=== PATIENT | female | born 1980 | race Caucasian/White ===

== ENCOUNTER 2018-01-04 17:47 | Emergency (ER) | payer OTHER ==
[2018-01-04] MEDS ORDERED: SODIUM CHLORIDE 0.9% 1,000 ML IV ONE (19:17)
--- NOTE | 2018-01-04 19:31 | ED ---
General Adult HPI - General Source: patient Mode of arrival: ambulatory Limitations: no limitations <Bernice Walton - Last Filed: 01/05/18 05:39> <Jose Carlos Beatty - Last Filed: 01/05/18 10:45> - General Chief complaint: Vaginal Bleeding Stated complaint: poss miscarrage Time Seen by Provider: 01/04/18 18:18 - History of Present Illness Initial comments: 37-year-old female patient presents to the emergency department today for complaints of vaginal bleeding. Patient states she has had 4 positive test at home. Last period was on 11/23/2017. 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 Patient states she has had that vaginal bleeding for the last 9 days, states this started as spotting and has become heavier. States that she now has to wear a pad. States that she has had some small clots but no passage of tissue that she has noticed. States she is not having any pain with this. Patient states her blood type is B- and she has had to get Rhogam for the past. She denies any hematuria, dysuria, urinary frequency, urinary urgency. States she is having normal bowel movements. Patient denies any recent rash, fever, chills, shortness breath, chest pain, nausea, vomiting, diarrhea, constipation, back pain, numbness, tingling, dizziness, weakness, headache, visual changes, or any other complaints. (Bernice Walton) - Related Data Allergies Allergy/AdvReac Type Severity Reaction Status Date / Time No Known Allergies Allergy Verified 01/04/18 18:02 Review of Systems ROS Other: All systems not noted in ROS Statement are negative. <Bernice Walton - Last Filed: 01/05/18 05:39> ROS Other: All systems not noted in ROS Statement are negative. <Jose Carlos Beatty - Last Filed: 01/05/18 10:45> ROS Statement: Those systems with pertinent positive or pertinent negative responses have been documented in the HPI. Past Medical History Past Medical History: No Reported History History of Any Multi-Drug Resistant Organisms: None Reported Past Surgical History: Section Past Psychological History: Anxiety, Depression Smoking Status: Current every day smoker Past Alcohol Use History: Occasional Past Drug Use History: None Reported <Bernice Walton - Last Filed: 01/05/18 05:39> General Exam Limitations: no limitations General appearance: alert, in no apparent distress, other (This is a well- developed, well-nourished adult female patient in no acute distress. Vital signs upon presentation are temperature 98.3F, pulse 114, respirations 20, blood pressure 156/86, pulse ox 98% on room air.) Eye exam: Present: normal appearance, PERRL, EOMI. Absent: scleral icterus, conjunctival injection, periorbital swelling ENT exam: Present: normal exam, normal oropharynx, mucous membranes moist Respiratory exam: Present: normal lung sounds bilaterally. Absent: respiratory distress, wheezes, rales, rhonchi, stridor Cardiovascular Exam: Present: regular rate, normal rhythm, normal heart sounds. Absent: systolic murmur, diastolic murmur, rubs, gallop, clicks GI/Abdominal exam: Present: soft, normal bowel sounds. Absent: distended, tenderness, guarding, rebound, rigid Back exam: Present: normal inspection. Absent: CVA tenderness (R), CVA tenderness (L) Neurological exam: Present: alert, oriented X3, CN II-XII intact Psychiatric exam: Present: normal affect, normal mood Skin exam: Present: warm, dry, intact, normal color. Absent: rash <Bernice Walton - Last Filed: 01/05/18 05:39> Vital Signs 01/04/18 01/04/18 01/04/18 17:59 20:35 22:40 Temperature 98.3 F 97.9 F Pulse Rate 114 H 79 64 Respiratory 20 16 17 Rate Blood Pressure 156/86 146/83 136/92 O2 Sat by Pulse 98 99 99 Oximetry Medical Decision Making - Lab Data Result diagrams: 01/04/18 19:30 01/04/18 19:30 - Radiology Data Radiology results: report reviewed, image reviewed <Bernice Walton - Last Filed: 01/05/18 05:39> - Lab Data Result diagrams: 01/04/18 19:30 01/04/18 19:30 <Jose Carlos Beatty - Last Filed: 01/05/18 10:45> - Medical Decision Making 37-year-old female patient presents to emergency department today for evaluation of vaginal bleeding for the last 7 days. Patient is . Ultrasound did show possible gestational sac but also dilation of the left fallopian tube. Labs reviewed and showed elevated hCG at 370. Patient does have a B- blood type so we did administer RhoGAM. My attending Dr. Beatty did speak to Dr. Goode the ARMORED VEHICLE OFFICER on-call, states she will see the patient and next couple days for follow-up ultrasound and serial hCG. Did discuss findings and results with the patient. Did discuss signs and symptoms of ectopic . She is instructed to return here immediately for any new, worsening , or concerning symptoms. She verbalizes understanding and agrees with this plan. (Bernice Walton) I saw this patient in conjunction with the physician insurance account assistant. I performed independent history and physical exam. Agree with case management. I also discussed case management with Dr. Goode who will see the patient in follow-up for serial hCG and ultrasound. Discussed return parameters and appropriate follow-up. (Jose Carlos Beatty) - Lab Data Lab Results 01/04/18 01/04/18 01/04/18 Range/Units 17:50 19:30 19:30 WBC 8.2 (3.8-10.6) k/uL RBC 4.62 (3.80-5.40) m/uL Hgb 15.1 (11.4-16.0) gm/dL Hct 46.5 H (34.0-46.0) % MCV 100.7 H (80.0-100.0) fL MCH 32.7 (25.0-35.0) pg MCHC 32.5 (31.0-37.0) g/dL RDW 12.6 (11.5-15.5) % Plt Count 296 (150-450) k/uL Neutrophils % 81 % Lymphocytes % 11 % Monocytes % 5 % Eosinophils % 1 % Basophils % 0 % Neutrophils # 6.7 (1.3-7.7) k/uL Lymphocytes # 0.9 L (1.0-4.8) k/uL Monocytes # 0.4 (0-1.0) k/uL Eosinophils # 0.1 (0-0.7) k/uL Basophils # 0.0 (0-0.2) k/uL Sodium 137 (137-145) mmol/L Potassium 4.1 (3.5-5.1) mmol/L Chloride 104 (98-107) mmol/L Carbon Dioxide 24 (22-30) mmol/L Anion Gap 9 mmol/L BUN 9 (7-17) mg/dL Creatinine 0.60 (0.52-1.04) mg/dL Est GFR (CKD-EPI)AfAm >90 (>60 ml/min/1.73 sqM) Est GFR (CKD-EPI)NonAf >90 (>60 ml/min/1.73 sqM) Glucose 206 H (74-99) mg/dL Calcium 9.5 (8.4-10.2) mg/dL Total Bilirubin 0.4 (0.2-1.3) mg/dL AST 24 (14-36) U/L ALT 35 (9-52) U/L Alkaline Phosphatase 58 (38-126) U/L Total Protein 7.0 (6.3-8.2) g/dL Albumin 3.9 (3.5-5.0) g/dL HCG, Quant 370.0 mIU/mL Urine Color Urine Appearance (Clear) Urine pH (5.0-8.0) Ur Specific [place] (1.001-1.035) Urine Protein (Negative) Urine Glucose (UA) (Negative) Urine Ketones (Negative) Urine Blood (Negative) Urine Nitrite (Negative) Urine Bilirubin (Negative) Urine Urobilinogen (<2.0) mg/dL Ur Leukocyte Esterase (Negative) Urine RBC (0-5) /hpf Ur Squamous Epith Cells (0-4) /hpf Urine Mucus (None) /hpf Blood Type B Negative Blood Type Confirm Blood Type Recheck CABO Indicated Antibody Screen NEGATIVE 01/04/18 01/04/18 Range/Units 19:30 21:01 WBC (3.8-10.6) k/uL RBC (3.80-5.40) m/uL Hgb (11.4-16.0) gm/dL Hct (34.0-46.0) % MCV (80.0-100.0) fL MCH (25.0-35.0) pg MCHC (31.0-37.0) g/dL RDW (11.5-15.5) % Plt Count (150-450) k/uL Neutrophils % % Lymphocytes % % Monocytes % % Eosinophils % % Basophils % % Neutrophils # (1.3-7.7) k/uL Lymphocytes # (1.0-4.8) k/uL Monocytes # (0-1.0) k/uL Eosinophils # (0-0.7) k/uL Basophils # (0-0.2) k/uL Sodium (137-145) mmol/L Potassium (3.5-5.1) mmol/L Chloride (98-107) mmol/L Carbon Dioxide (22-30) mmol/L Anion Gap mmol/L BUN (7-17) mg/dL Creatinine (0.52-1.04) mg/dL Est GFR (CKD-EPI)AfAm (>60 ml/min/1.73 sqM) Est GFR (CKD-EPI)NonAf (>60 ml/min/1.73 sqM) Glucose (74-99) mg/dL Calcium (8.4-10.2) mg/dL Total Bilirubin (0.2-1.3) mg/dL AST (14-36) U/L ALT (9-52) U/L Alkaline Phosphatase (38-126) U/L Total Protein (6.3-8.2) g/dL Albumin (3.5-5.0) g/dL HCG, Quant mIU/mL Urine Color Red Urine Appearance Cloudy H (Clear) Urine pH 5.5 (5.0-8.0) Ur Specific [place] 1.019 (1.001-1.035) Urine Protein 1+ H (Negative) Urine Glucose (UA) Negative (Negative) Urine Ketones Negative (Negative) Urine Blood Large H (Negative) Urine Nitrite Negative (Negative) Urine Bilirubin Negative (Negative) Urine Urobilinogen <2.0 (<2.0) mg/dL Ur Leukocyte Esterase Small H (Negative) Urine RBC >182 H (0-5) /hpf Ur Squamous Epith Cells 2 (0-4) /hpf Urine Mucus Rare H (None) /hpf Blood Type Blood Type Confirm B Negative Blood Type Recheck Antibody Screen - Radiology Data Transvaginal and transabdominal ultrasound was obtained. Report was reviewed in its entirety. Impression by Dr. Lei shows possible intrauterine 4 mm gestational sac. 2 cm urine fibroid. Right ovarian cyst. Also noted is a anechoic tubular structure seen left adnexa, question possible dilated tube. ( Bernice Walton) Disposition Is patient prescribed a controlled substance at d/c from ED?: No Time of Disposition: 22:08 <Bernice Walton - Last Filed: 01/05/18 05:39> <Jose Carlos Beatty - Last Filed: 01/05/18 10:45> Clinical Impression: Threatened , Vaginal bleeding during Disposition: HOME SELF-CARE Condition: Good Instructions: Rh (By injection), Threatened Miscarriage (ED) Additional Instructions: Follow up with OBGYN in 2 days for a recheck, call office tomorrow for appointment. Return immediately for increased pain, worsening bleeding, or any other concerning symptom. Referrals: Dori Goode DO [Doctor of Osteopathic Medicine] - 1-2 days
[2018-01-04 19:57] LABS: Basophils % (A) 0 %; Eosinophils # (A) 0.1 k/uL (0-0.7); Eosinophils % (A) 1 %; HCT 46.5 % (34.0-46.0); HGB 15.1 gm/dL (11.4-16.0); Lymphocytes # (A) 0.9 k/uL (1.0-4.8); Lymphocytes % (A) 11 %; MCH 32.7 pg (25.0-35.0); MCHC 32.5 g/dL (31.0-37.0); MCV 100.7 fL (80.0-100.0); Mean Platelet Volume 7.1; Monocytes # (A) 0.4 k/uL (0-1.0); Monocytes % (A) 5 %; Neutrophils # (A) 6.7 k/uL (1.3-7.7); Neutrophils % (A) 81 %; Platelet Count 296 k/uL (150-450); RBC 4.62 m/uL (3.80-5.40); RDW 12.6 % (11.5-15.5); WBC 8.2 k/uL (3.8-10.6)
[2018-01-04 19:59] LABS: ALT 35 U/L (9-52); AST 24 U/L (14-36); Albumin 3.9 g/dL (3.5-5.0); Alkaline Phosphatase 58 U/L (38-126); Anion Gap 9 mmol/L; Blood Urea Nitrogen 9 mg/dL (7-17); Calcium 9.5 mg/dL (8.4-10.2); Carbon Dioxide 24 mmol/L (22-30); Chloride 104 mmol/L (98-107); Glucose 206 mg/dL (74-99); Potassium 4.1 mmol/L (3.5-5.1); Sodium 137 mmol/L (137-145); Total Bilirubin 0.4 mg/dL (0.2-1.3)
[2018-01-04 20:02] LABS: Appearance,Urine Cloudy (Clear); Bilirubin,Urine Negative (Negative); Blood,Urine Large (Negative); Color,Urine Red; Glucose,Urine (UA) Negative (Negative); Ketones,Urine Negative (Negative); Leukocyte Esterase,Urine Small (Negative); Mucus,Urine Rare /hpf; Nitrite,Urine Negative (Negative); PH, Urine 5.5 (5.0-8.0); Protein,Urine 1+ (Negative); RBC,Urine >182 /hpf (0-5); Specific Gravity,Urine 1.019 (1.001-1.035); Squamous Epithelial Cell,Urine 2 /hpf (0-4); Urobilinogen,Urine <2.0 mg/dL (<2.0)
--- NOTE | 2018-01-04 21:11 | US ---
EXAMINATION TYPE: Transabdominal DATE OF EXAM: 08/09/17 COMPARISON: NONE CLINICAL HISTORY: Pain. Spotting EXAM PERFORMED: Transvaginal (TV) and Transabdominal (TA) EXAM MEASUREMENTS: GESTATIONAL AGE / DATING Physician Established: Not yet established Dates by LMP: ( 6 weeks/0 days) EDC: 08/30/2018 Dates by First Scan: No previous this is first scan Dates by Current Scan for: No IUP seen at this time MATERNAL ANATOMY Uterus: 8.3 x 4.2 x 4.9 cm Hypoechoic area seen inferior measuring 1.8 x 1.7 x 1.8 cm. Right Ovary: 3.3 x 2.2 x 2.7 cm Cystic area seen measuring 2.9 x 2.1 x 2.0 cm. Post CDS / Adnexa: Anechoic tubular structure seen left adnexa question possible dilated tube. Presence of free fluid: no Presence of corpus luteal cyst: possible right ovary Presence of subchorionic bleed: no GESTATION / SURVEY MSD: Question possible sac seen 0.35cm. IUP: No IUP seen at this time Beta HcG (if available): 370.0 No IUP seen at this time. IMPRESSION: Possible intrauterine 4 mm gestational sac. 2 cm uterine fibroid. Right ovarian cyst. Follow-up exam is recommended in 10-14 days to confirm a living fetus if clinically indicated.
[2018-01-04] MEDS ORDERED: Rhogam IMMUNE GLOBULIN 1,500 UNIT/1 ML IM ONE (22:03)
[2018-01-04 22:45] VITALS: BP 136/92; PULSE 64; RESP 17; TEMP 97.9
== END 2018-01-04 22:45 | disposition home or self-care (01) ==
LOC: EC 17:47
DX: O20.0 Threatened abortion (principal); O99.331 Smoking (tobacco) complicating pregnancy, first trimester; F17.200 Nicotine dependence, unspecified, uncomplicated; Z3A.01 Less than 8 weeks gestation of pregnancy
CPT/HCPCS: 36415; 86900; 86901; 80053; 85025; 86850; 81001; 84702; 76801; 76817; 99284; 96372; J2791

== ENCOUNTER → 2018-01-06 | Outpatient (CLI) | payer OTHER | END | disposition home or self-care (01) | LOC: LABWHC1 14:09 | PROVIDERS: ATTEND Obstetrics & Gynecology | DX: O20.0 Threatened abortion (principal); Z3A.00 Weeks of gestation of pregnancy not specified | CPT/HCPCS: 36415; 84702 ==

== ENCOUNTER → 2018-01-13 | Outpatient (CLI) | payer OTHER | END | disposition home or self-care (01) | LOC: LABWHC1 14:55 | PROVIDERS: ATTEND Obstetrics & Gynecology | DX: O02.1 Missed abortion (principal) | CPT/HCPCS: 36415; 84702 ==

== ENCOUNTER 2021-05-28 11:00 | Emergency (ER) | payer OTHER ==
[2021-05-28 11:09] VITALS: RESP 18; TEMP 98.7
[2021-05-28] MEDS ORDERED: guaiFENesin-Coden 100-10MG/5ML 10 ML CUP PO STA (11:37)
--- NOTE | 2021-05-28 12:02 | XR ---
EXAMINATION TYPE: XR chest 2V DATE OF EXAM: 05/28/2021 COMPARISON: NONE HISTORY: Cough and fever. COVID. TECHNIQUE: Frontal and lateral views of the chest are obtained. FINDINGS: There are some faint areas of increased opacity bilaterally. No pleural effusion or pneum othorax is seen bilaterally. The cardiac silhouette size is within normal limits. The osseous struc tures are intact. IMPRESSION: Bilateral faint areas of increased opacity consistent with covid-19 infection
--- NOTE | 2021-05-28 12:43 | ED ---
General Adult HPI - General Chief complaint: Upper Respiratory Infection Stated complaint: Covid+/cough/SOB Time Seen by Provider: 05/28/21 11:11 Source: patient, RN notes reviewed Mode of arrival: ambulatory Limitations: no limitations - History of Present Illness Initial comments: 41-year-old female presents emergency Department chief complaint of cough congestion. Patient states she did have a visit with her PCP sent her in. Patient is 7 days started symptoms are COVID-19. She has tested positive. She states she does feel short of breath, achy constant cough. Patient denies any health problems. Patient does not take any immunologic medications no chest pain no GI symptoms. - Related Data Previous Rx's Medication Instructions Recorded Dexamethasone [Decadron] 6 mg PO DAILY #5 tablet 05/28/21 guaiFENesin-Coden 100-10MG/5ML 10 ml PO Q4H PRN 3 Days #180 ml 05/28/21 [Robitussin AC] Allergies Allergy/AdvReac Type Severity Reaction Status Date / Time naproxen Allergy Unknown Verified 05/28/21 11:06 Review of Systems ROS Statement: Those systems with pertinent positive or pertinent negative responses have been documented in the HPI. ROS Other: All systems not noted in ROS Statement are negative. Past Medical History Past Medical History: No Reported History History of Any Multi-Drug Resistant Organisms: None Reported Past Surgical History: Section, Orthopedic Surgery Additional Past Surgical History / Comment(s): bunionectomy Past Psychological History: Anxiety, Depression Smoking Status: Former smoker Past Alcohol Use History: Occasional Past Drug Use History: None Reported General Exam Limitations: no limitations General appearance: alert, in no apparent distress Head exam: Present: atraumatic, normocephalic, normal inspection Eye exam: Present: normal appearance, PERRL, EOMI. Absent: scleral icterus, conjunctival injection, periorbital swelling ENT exam: Present: normal exam, normal oropharynx, mucous membranes moist Neck exam: Present: normal inspection. Absent: tenderness, meningismus, lymphadenopathy Respiratory exam: Present: normal lung sounds bilaterally. Absent: respiratory distress, wheezes, rales, rhonchi, stridor Cardiovascular Exam: Present: normal rhythm, tachycardia, normal heart sounds. Absent: systolic murmur, diastolic murmur, rubs, gallop, clicks GI/Abdominal exam: Present: soft, normal bowel sounds. Absent: distended, tenderness, guarding, rebound, rigid Course Vital Signs 05/28/21 11:06 Temperature 98.7 F Pulse Rate 104 H Respiratory 18 Rate Blood Pressure 160/104 O2 Sat by Pulse 97 Oximetry Medical Decision Making - Medical Decision Making X-ray shows evidence of covid 19 pneumonia. Patient does not have any hypoxia patient we given medication for her cough return parameters were discussed. Disposition Clinical Impression: COVID-19 Disposition: HOME SELF-CARE Condition: Stable Instructions (If sedation given, give patient instructions): Coronavirus Disease 2019 (COVID-19) Additional Instructions: Please return to the Emergency Department if symptoms worsen or any other c oncerns. Prescriptions: Dexamethasone [Decadron] 6 mg PO DAILY #5 tablet guaiFENesin-Coden 100-10MG/5ML [Robitussin AC] 10 ml PO Q4H PRN 3 Days #180 ml PRN Reason: Cough Is patient prescribed a controlled substance at d/c from ED?: No Referrals: Nolan Matute MD [Primary Care Provider] - 1-2 days Time of Disposition: 12:39
[2021-05-28 13:17] VITALS: BP 152/94; PULSE 101
== END 2021-05-28 12:54 | disposition home or self-care (01) ==
LOC: EC 11:00
DX: U07.1 COVID-19 (principal); F41.9 Anxiety disorder, unspecified; F32.A Depression, unspecified; Z87.891 Personal history of nicotine dependence
CPT/HCPCS: 71046; 99284

== ENCOUNTER 2021-06-01 10:04 | Emergency (ER) | payer OTHER ==
[2021-06-01] MEDS ORDERED: ALBUTEROL HFA INHALER INHALATION STA (10:20)
--- NOTE | 2021-06-01 10:23 | ED ---
General Adult HPI - General Chief complaint: Shortness of Breath Stated complaint: covid+, SOB-revisit Time Seen by Provider: 06/01/21 10:10 Source: patient Mode of arrival: ambulatory Limitations: no limitations - History of Present Illness Initial comments: 41-year-old female with a past medical history of daily smoking presents to the emergency room for a chief complaint of shortness of breath. Patient states she tested positive for COVID-19 10 days ago, symptoms started 11 days ago. Patient states that the shortness of breath will not go away and she is still coughing. She denies chest pain. Patient was seen in the emergency room 4 days ago. X- ray did show evidence of cough with pneumonia at that time however no hypoxia. Patient was given Decadron and and cough medicine at that time. She states she has an inhaler at home. Patient has no other complaints at this time including shortness of breath, chest pain, abdominal pain, nausea or vomiting, headache, or visual changes. - Related Data Previous Rx's Medication Instructions Recorded Dexamethasone [Decadron] 6 mg PO DAILY #5 tablet 05/28/21 guaiFENesin-Coden 100-10MG/5ML 10 ml PO Q4H PRN 3 Days #180 ml 05/28/21 [Robitussin AC] Dexamethasone [Decadron] 6 mg PO DAILY #5 tablet 06/01/21 Allergies Allergy/AdvReac Type Severity Reaction Status Date / Time naproxen Allergy Unknown Verified 06/01/21 10:08 Review of Systems ROS Statement: Those systems with pertinent positive or pertinent negative responses have been documented in the HPI. ROS Other: All systems not noted in ROS Statement are negative. Past Medical History Past Medical History: No Reported History Additional Past Medical History / Comment(s): covid History of Any Multi-Drug Resistant Organisms: None Reported Past Surgical History: Section, Orthopedic Surgery Additional Past Surgical History / Comment(s): bunionectomy Past Psychological History: Anxiety, Depression Smoking Status: Former smoker Past Alcohol Use History: Occasional Past Drug Use History: None Reported General Exam Limitations: no limitations General appearance: alert, in no apparent distress Head exam: Present: atraumatic Eye exam: Present: normal appearance, PERRL, EOMI. Absent: scleral icterus, conjunctival injection ENT exam: Present: normal exam, mucous membranes moist Neck exam: Present: normal inspection, full ROM. Absent: tenderness Respiratory exam: Present: rales. Absent: respiratory distress, wheezes Cardiovascular Exam: Present: regular rate, normal rhythm, normal heart sounds GI/Abdominal exam: Present: soft, normal bowel sounds. Absent: distended, tenderness Course Vital Signs 06/01/21 06/01/21 06/01/21 10:05 10:09 10:23 Temperature 97 F L Pulse Rate 93 Respiratory 20 18 Rate Blood Pressure 153/109 O2 Sat by Pulse 99 96 Oximetry 06/01/21 11:14 Temperature 98.5 F Pulse Rate 104 H Respiratory 18 Rate Blood Pressure 134/100 O2 Sat by Pulse 96 Oximetry EKG Findings - EKG Comments: EKG Findings:: Normal sinus rhythm, ventricular rate 95, ME interval 116, QTc 444 Medical Decision Making - Medical Decision Making Vitals are stable. Patient is well appearing. She is 99% on room air. Ambulating O2 is 95% on room air. CBC CMP is unremarkable. D-dimer is normal. Chest x-ray does show worsening pneumonia. Patient's oxygen however does not require admission at this point. She does not qualify for antibody infusion. Patient was given 5 days of steroids. We will continue this for another 5 days. She does have albuterol at home. He was encouraged to watch her pulse oximeter and return if it is consistently less than 90. She will return here for any other worsening symptoms. - Lab Data Result diagrams: 06/01/21 10:29 06/01/21 10:29 Lab Results 06/01/21 06/01/21 06/01/21 Range/Units 10:29 10:29 10:29 WBC 7.5 (3.8-10.6) k/uL RBC 4.33 (3.80-5.40) m/uL Hgb 13.7 (11.4-16.0) gm/dL Hct 41.4 (34.0-46.0) % MCV 95.5 (80.0-100.0) fL MCH 31.5 (25.0-35.0) pg MCHC 33.0 (31.0-37.0) g/dL RDW 12.5 (11.5-15.5) % Plt Count 335 (150-450) k/uL MPV 7.7 Neutrophils % 66 % Lymphocytes % 23 % Monocytes % 7 % Eosinophils % 1 % Basophils % 0 % Neutrophils # 5.0 (1.3-7.7) k/uL Lymphocytes # 1.7 (1.0-4.8) k/uL Monocytes # 0.6 (0-1.0) k/uL Eosinophils # 0.1 (0-0.7) k/uL Basophils # 0.0 (0-0.2) k/uL D-Dimer 0.24 (<0.60) mg/L FEU Sodium 136 L (137-145) mmol/L Potassium 3.8 (3.5-5.1) mmol/L Chloride 103 (98-107) mmol/L Carbon Dioxide 22 (22-30) mmol/L Anion Gap 11 mmol/L BUN 11 (7-17) mg/dL Creatinine 0.52 (0.52-1.04) mg/dL Est GFR (CKD-EPI)AfAm >90 (>60 ml/min/1.73 sqM) Est GFR (CKD-EPI)NonAf >90 (>60 ml/min/1.73 sqM) Glucose 203 H (74-99) mg/dL Calcium 9.3 (8.4-10.2) mg/dL Total Bilirubin 0.5 (0.2-1.3) mg/dL AST 44 H (14-36) U/L ALT 44 H (4-34) U/L Alkaline Phosphatase 91 (38-126) U/L Total Protein 6.9 (6.3-8.2) g/dL Albumin 3.8 (3.5-5.0) g/dL Disposition Clinical Impression: COVID-19, Pneumonia due to COVID-19 virus Disposition: HOME SELF-CARE Condition: Good Instructions (If sedation given, give patient instructions): Coronavirus Disease 2019 (COVID-19) Additional Instructions: Please continue steroid and inhaler. Follow-up with your doctor. Return to the emergency room for any worsening symptoms. Prescriptions: Dexamethasone [Decadron] 6 mg PO DAILY #5 tablet Is patient prescribed a controlled substance at d/c from ED?: No Referrals: Nolan Matute MD [Primary Care Provider] - 1-2 days Time of Disposition: 11:42
[2021-06-01 10:25] VITALS: RESP 18
[2021-06-01 10:42] LABS: Basophils % (A) 0 %; Eosinophils # (A) 0.1 k/uL (0-0.7); Eosinophils % (A) 1 %; HCT 41.4 % (34.0-46.0); HGB 13.7 gm/dL (11.4-16.0); Lymphocytes # (A) 1.7 k/uL (1.0-4.8); Lymphocytes % (A) 23 %; MCH 31.5 pg (25.0-35.0); MCV 95.5 fL (80.0-100.0); Mean Platelet Volume 7.7; Monocytes # (A) 0.6 k/uL (0-1.0); Monocytes % (A) 7 %; Neutrophils % (A) 66 %; Platelet Count 335 k/uL (150-450); RBC 4.33 m/uL (3.80-5.40); RDW 12.5 % (11.5-15.5); WBC 7.5 k/uL (3.8-10.6)
[2021-06-01 10:52] LABS: ALT 44 U/L (4-34); AST 44 U/L (14-36); African American GFR (CKD) >90 (>60 ml/min/1.73 sqM); Albumin 3.8 g/dL (3.5-5.0); Alkaline Phosphatase 91 U/L (38-126); Anion Gap 11 mmol/L; Blood Urea Nitrogen 11 mg/dL (7-17); Calcium 9.3 mg/dL (8.4-10.2); Carbon Dioxide 22 mmol/L (22-30); Chloride 103 mmol/L (98-107); Glucose 203 mg/dL (74-99); Non-African American GFR(CKD) >90 (>60 ml/min/1.73 sqM); Potassium 3.8 mmol/L (3.5-5.1); Sodium 136 mmol/L (137-145); Total Bilirubin 0.5 mg/dL (0.2-1.3); Total Protein 6.9 g/dL (6.3-8.2)
--- NOTE | 2021-06-01 10:58 | XR ---
EXAMINATION TYPE: XR chest 1V portable DATE OF EXAM: 06/01/2021 COMPARISON: Chest x-ray May 28, 2021 HISTORY: COVID +2 weeks ago with persisting cough. TECHNIQUE: Single AP portable frontal upright view of the chest is obtained. FINDINGS: There is interval worsening in left lung multifocal opacities becoming more confluent. Merrick nt patchy right sided opacities are fairly stable. The cardiac silhouette size remains within normal limits. The osseous structures are intact. IMPRESSION: Worsening left lung multifocal opacities. Stable faint right lung opacities. Overall fin dings consistent with slight covid-19 infection progression.
[2021-06-01 11:15] VITALS: PULSE 104; TEMP 98.5
[2021-06-01 11:18] VITALS: BP 134/100
== END 2021-06-01 12:16 | disposition home or self-care (01) ==
LOC: EC 10:04
DX: U07.1 COVID-19 (principal); J12.82 Pneumonia due to coronavirus disease 2019; Z87.891 Personal history of nicotine dependence
CPT/HCPCS: 36415; 71045; 80053; 85025; 85379; 93005; 94640; 99285

== ENCOUNTER 2021-06-10 11:58 | Observation (INO) | payer OTHER ==
[2021-06-10] MEDS ORDERED: SODIUM CHLORIDE 0.9% 500 ML 500 ML IV STA (12:25)
--- NOTE | 2021-06-10 12:49 | ED ---
General Adult HPI - General Chief complaint: Upper Respiratory Infection Stated complaint: High HR/Upper Resp Time Seen by Provider: 06/10/21 12:00 Source: patient, RN notes reviewed, old records reviewed Mode of arrival: ambulatory Limitations: no limitations - History of Present Illness Initial comments: This is a 41-year-old female presents emergency department stating that she's had COVID for the last 3 weeks she's not getting any better. Patient states she went to see her primary medical care doctor and her doctor wanted to come to the hospital to be admitted. He stated that she had pneumonia. Patient states her cough has gotten worse she still continues to be short of breath or heart rate goes up to 130 140 beats a minute. Patient denies any chest pain. Patient denies abdominal pain patient denies nausea vomiting diarrhea. Patient denies any fevers or chills currently. Patient denies any calf pain or swelling in legs - Related Data Home Medications Medication Instructions Recorded Confirmed ARIPiprazole [Abilify] 2 mg PO DAILY 06/10/21 06/10/21 Albuterol Sulfate [Ventolin HFA] 2 puff INHALATION RT-Q6H PRN 06/10/21 06/10/21 Ammonium Lactate Cream [Lac-Hydrin 1 applic TOPICAL DAILY PRN 06/10/21 06/10/21 12% Cream] Blisovi 1 tab PO DAILY@199906/10/21 06/10/21 Escitalopram [Lexapro] 30 mg PO DAILY@1200 06/10/21 06/10/21 Allergies Allergy/AdvReac Type Severity Reaction Status Date / Time naproxen Allergy Unknown Verified 06/10/21 14:34 Review of Systems ROS Statement: Those systems with pertinent positive or pertinent negative responses have been documented in the HPI. ROS Other: All systems not noted in ROS Statement are negative. Past Medical History Past Medical History: No Reported History Additional Past Medical History / Comment(s): covid History of Any Multi-Drug Resistant Organisms: None Reported Past Surgical History: Section, Orthopedic Surgery Additional Past Surgical History / Comment(s): bunionectomy Past Psychological History: Anxiety, Depression Smoking Status: Former smoker Past Alcohol Use History: Occasional Past Drug Use History: None Reported General Exam - General Exam Comments Initial Comments: GENERAL: Patient is well-developed and well-nourished. Patient is nontoxic and well- hydrated and is in mild distress. ENT: Neck is soft and supple. No significant lymphadenopathy is noted. Oropharynx is clear. Moist mucous membranes. Neck has full range of motion without eliciting any pain. EYES: The sclera were anicteric and conjunctiva were pink and moist. Extraocular movements were intact and pupils were equal round and reactive to light. Eyelids were unremarkable. PULMONARY: Unlabored respirations. Good breath sounds bilaterally. Crackles at the bases. CARDIOVASCULAR: There is a regular rate and rhythm without any murmurs gallops or rubs. ABDOMEN: Soft and nontender with normal bowel sounds. SKIN: Skin is clear with no lesions or rashes and otherwise unremarkable. NEUROLOGIC: Patient is alert and oriented x3. Cranial nerves II through XII are grossly intact. Motor and sensory are also intact. Normal speech, volume and content. Symmetrical smile. MUSCULOSKELETAL: Normal extremities with adequate strength and full range of motion. No lower extremity swelling or edema. No calf tenderness. LYMPHATICS: No significant lymphadenopathy is noted PSYCHIATRIC: Normal psychiatric evaluation. Limitations: no limitations Course Vital Signs 06/10/21 06/10/21 06/10/21 11:58 13:00 14:00 Temperature 97 F L Pulse Rate 131 H 91 75 Respiratory 18 20 20 Rate Blood Pressure 165/103 142/89 O2 Sat by Pulse 98 96 96 Oximetry 06/10/21 15:00 Temperature Pulse Rate 79 Respiratory 22 Rate Blood Pressure 133/91 O2 Sat by Pulse 99 Oximetry Medical Decision Making - Medical Decision Making EKG shows normal sinus rhythm at 90 bpm ND interval 112 QRS is 86 QT interval 346 QTC is 423. Patient's EKG shows no ST segment elevation or depression. When I was in the room the patient's heart rate got up to 125 beats a minute and her pulse ox on room air remained at about 9697% Chest x-ray shows signs of occult pneumonia. CT of the chest shows no pulmonary embolism patient has multiple small nodules as well as covert pneumonia. I spoke with Dr. Restrepo she agreed to admit the patient admitted the patient wrote admitting orders. I started the patient on steroids. - Lab Data Result diagrams: 06/10/21 12:11 06/10/21 12:11 Lab Results 06/10/21 06/10/21 06/10/21 Range/Units 12:11 12:11 12:11 WBC 9.7 (3.8-10.6) k/uL RBC 4.25 (3.80-5.40) m/uL Hgb 13.3 (11.4-16.0) gm/dL Hct 40.3 (34.0-46.0) % MCV 94.8 (80.0-100.0) fL MCH 31.2 (25.0-35.0) pg MCHC 32.9 (31.0-37.0) g/dL RDW 12.6 (11.5-15.5) % Plt Count 371 (150-450) k/uL MPV 7.8 Neutrophils % 75 % Lymphocytes % 17 % Monocytes % 5 % Eosinophils % 1 % Basophils % 0 % Neutrophils # 7.2 (1.3-7.7) k/uL Lymphocytes # 1.7 (1.0-4.8) k/uL Monocytes # 0.5 (0-1.0) k/uL Eosinophils # 0.1 (0-0.7) k/uL Basophils # 0.0 (0-0.2) k/uL D-Dimer 0.67 H (<0.60) mg/L FEU Sodium 134 L (137-145) mmol/L Potassium 4.4 (3.5-5.1) mmol/L Chloride 100 (98-107) mmol/L Carbon Dioxide 21 L (22-30) mmol/L Anion Gap 13 mmol/L BUN 11 (7-17) mg/dL Creatinine 0.54 (0.52-1.04) mg/dL Est GFR (CKD-EPI)AfAm >90 (>60 ml/min/1.73 sqM) Est GFR (CKD-EPI)NonAf >90 (>60 ml/min/1.73 sqM) Glucose 303 H (74-99) mg/dL Lactic Ac Sepsis Rflx Plasma Lactic Acid Roel (0.7-2.0) mmol/L Calcium 9.5 (8.4-10.2) mg/dL Total Bilirubin 0.4 (0.2-1.3) mg/dL AST 39 H (14-36) U/L ALT 38 H (4-34) U/L Alkaline Phosphatase 90 (38-126) U/L Troponin I (0.000-0.034) ng/mL NT-Pro-B Natriuret Pep pg/mL Total Protein 7.0 (6.3-8.2) g/dL Albumin 3.7 (3.5-5.0) g/dL 06/10/21 06/10/21 06/10/21 Range/Units 12:11 12:11 12:11 WBC (3.8-10.6) k/uL RBC (3.80-5.40) m/uL Hgb (11.4-16.0) gm/dL Hct (34.0-46.0) % MCV (80.0-100.0) fL MCH (25.0-35.0) pg MCHC (31.0-37.0) g/dL RDW (11.5-15.5) % Plt Count (150-450) k/uL MPV Neutrophils % % Lymphocytes % % Monocytes % % Eosinophils % % Basophils % % Neutrophils # (1.3-7.7) k/uL Lymphocytes # (1.0-4.8) k/uL Monocytes # (0-1.0) k/uL Eosinophils # (0-0.7) k/uL Basophils # (0-0.2) k/uL D-Dimer (<0.60) mg/L FEU Sodium (137-145) mmol/L Potassium (3.5-5.1) mmol/L Chloride (98-107) mmol/L Carbon Dioxide (22-30) mmol/L Anion Gap mmol/L BUN (7-17) mg/dL Creatinine (0.52-1.04) mg/dL Est GFR (CKD-EPI)AfAm (>60 ml/min/1.73 sqM) Est GFR (CKD-EPI)NonAf (>60 ml/min/1.73 sqM) Glucose (74-99) mg/dL Lactic Ac Sepsis Rflx Plasma Lactic Acid Roel 3.3 H* (0.7-2.0) mmol/L Calcium (8.4-10.2) mg/dL Total Bilirubin (0.2-1.3) mg/dL AST (14-36) U/L ALT (4-34) U/L Alkaline Phosphatase (38-126) U/L Troponin I <0.012 (0.000-0.034) ng/mL NT-Pro-B Natriuret Pep 71 pg/mL Total Protein (6.3-8.2) g/dL Albumin (3.5-5.0) g/dL 06/10/21 Range/Units 13:05 WBC (3.8-10.6) k/uL RBC (3.80-5.40) m/uL Hgb (11.4-16.0) gm/dL Hct (34.0-46.0) % MCV (80.0-100.0) fL MCH (25.0-35.0) pg MCHC (31.0-37.0) g/dL RDW (11.5-15.5) % Plt Count (150-450) k/uL MPV Neutrophils % % Lymphocytes % % Monocytes % % Eosinophils % % Basophils % % Neutrophils # (1.3-7.7) k/uL Lymphocytes # (1.0-4.8) k/uL Monocytes # (0-1.0) k/uL Eosinophils # (0-0.7) k/uL Basophils # (0-0.2) k/uL D-Dimer (<0.60) mg/L FEU Sodium (137-145) mmol/L Potassium (3.5-5.1) mmol/L Chloride (98-107) mmol/L Carbon Dioxide (22-30) mmol/L Anion Gap mmol/L BUN (7-17) mg/dL Creatinine (0.52-1.04) mg/dL Est GFR (CKD-EPI)AfAm (>60 ml/min/1.73 sqM) Est GFR (CKD-EPI)NonAf (>60 ml/min/1.73 sqM) Glucose (74-99) mg/dL Lactic Ac Sepsis Rflx Y Plasma Lactic Acid Roel (0.7-2.0) mmol/L Calcium (8.4-10.2) mg/dL Total Bilirubin (0.2-1.3) mg/dL AST (14-36) U/L ALT (4-34) U/L Alkaline Phosphatase (38-126) U/L Troponin I (0.000-0.034) ng/mL NT-Pro-B Natriuret Pep pg/mL Total Protein (6.3-8.2) g/dL Albumin (3.5-5.0) g/dL Disposition Clinical Impression: Pneumonia due to COVID-19 virus Disposition: ADMITTED IP TO THIS HOSP Referrals: Nolan Matute MD [Primary Care Provider] - 1-2 days Time of Disposition: 15:55
[2021-06-10 12:58] LABS: ALT 38 U/L (4-34); AST 39 U/L (14-36); African American GFR (CKD) >90 (>60 ml/min/1.73 sqM); Albumin 3.7 g/dL (3.5-5.0); Alkaline Phosphatase 90 U/L (38-126); Anion Gap 13 mmol/L; Blood Urea Nitrogen 11 mg/dL (7-17); Calcium 9.5 mg/dL (8.4-10.2); Carbon Dioxide 21 mmol/L (22-30); Chloride 100 mmol/L (98-107); Glucose 303 mg/dL (74-99); Non-African American GFR(CKD) >90 (>60 ml/min/1.73 sqM); Potassium 4.4 mmol/L (3.5-5.1); Sodium 134 mmol/L (137-145); Total Bilirubin 0.4 mg/dL (0.2-1.3)
[2021-06-10 13:13] LABS: Basophils % (A) 0 %; Eosinophils # (A) 0.1 k/uL (0-0.7); Eosinophils % (A) 1 %; HCT 40.3 % (34.0-46.0); HGB 13.3 gm/dL (11.4-16.0); Lymphocytes # (A) 1.7 k/uL (1.0-4.8); Lymphocytes % (A) 17 %; MCH 31.2 pg (25.0-35.0); MCHC 32.9 g/dL (31.0-37.0); MCV 94.8 fL (80.0-100.0); Mean Platelet Volume 7.8; Monocytes # (A) 0.5 k/uL (0-1.0); Monocytes % (A) 5 %; Neutrophils # (A) 7.2 k/uL (1.3-7.7); Neutrophils % (A) 75 %; Platelet Count 371 k/uL (150-450); RBC 4.25 m/uL (3.80-5.40); RDW 12.6 % (11.5-15.5); WBC 9.7 k/uL (3.8-10.6)
--- NOTE | 2021-06-10 13:13 | XR ---
EXAMINATION TYPE: XR chest 2V DATE OF EXAM: 06/10/2021 COMPARISON: Chest x-ray 06/01/2021 HISTORY: Difficulty breathing, cough and congestion TECHNIQUE: Frontal and lateral views of the chest are obtained. FINDINGS: Upper lobe patchy density is again noted. There are overlying leads. Cardiac mediastinal s ilhouette is stable. No evident pneumothorax or pleural effusion. Right hemidiaphragm remains elevate d. Prominent lung volumes suggest underlying COPD. IMPRESSION: Findings may be secondary to sequela of patient's Covid pneumonia
[2021-06-10] MEDS ORDERED: SODIUM CHLORIDE 0.9% 1,000 ML IV ONE ×3 (13:50→19:14)
[2021-06-10] MEDS ORDERED: SODIUM CHLORIDE 0.9% 500 ML 500 ML IV ONE (13:50)
--- NOTE | 2021-06-10 14:44 | CT ---
EXAMINATION TYPE: CT chest angio for PE DATE OF EXAM: 06/10/2021 COMPARISON: Radiograph same day HISTORY: 41 year-old female shortness of breath, ELEVATED D DIMER TECHNIQUE: Contiguous axial scanning of the chest performed with IV Contrast, patient injected with 8 0 mL of Isovue 370. Coronal/sagittal MIP reconstructions performed. CT DLP: 425.2 mGycm Automated exposure control for dose reduction was used. FINDINGS: Heart normal size without pericardial effusion. No flattening of the interventricular septum or reflu x of contrast into the hepatic veins. 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 1 cm AP window lymph node. 1.9 x 1.2 cm right infrahilar lymph node. No additional thoracic lymphaden opathy seen. Satisfactory opacification of all the pulmonary arterial system. No evidence for pulmonary embolus. Mild to moderate centrilobular emphysema. Biapical pleural parenchymal scarring. Mild patchy peripheral groundglass changes in the upper and midlungs. 6 mm anterior right lower lung pulmonary nodule, axial image 91. 3 mm lateral right midlung pulmonary nodule, axial image 72. 4 mm right upper lobe pulmonary nodule, axial image 63 No pleural effusion. Visualized upper abdomen shows no gross adenopathy. Bones: No osseous destructive process. Mild degenerative change at the sternomanubrial joint. IMPRESSION: 1. NO EVIDENCE FOR PULMONARY EMBOLUS. 2. UPPER AND MIDLUNG PATCHY GROUNDGLASS INFILTRATES. CORRELATE FOR COVID PNEUMONIA VERSUS OTHER PNEUM ONITIS. 3. BORDERLINE ENLARGED 1 CM AP WINDOW LYMPH NODE AND ENLARGED 1.9 CM RIGHT INFRAHILAR LYMPH NODE. THE SE ARE LIKELY REACTIVE. RECOMMEND 6 MONTH FOLLOW-UP TO ASSESS FOR CLEARANCE OF THESE NODES WELL THE LUNG FINDINGS CLINICALLY INDICATED. 4. A FEW PULMONARY NODULES ON THE RIGHT MEASURING UP TO 6 MM CAN ALSO BE REASSESSED AT THAT TIME. 5. 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 All
[2021-06-10] MEDS ORDERED: dexAMETHasone 2 MG TAB PO STA (15:55)
[2021-06-11] MEDS ORDERED: SODIUM CHLORIDE 0.9% 1,000 ML IV ONE ×2 (03:16→11:10)
[2021-06-11] MEDS ORDERED: dexAMETHasone 2 MG TAB PO SCH (09:00)
[2021-06-11] MEDS ORDERED: ALBUTEROL HFA INHALER INHALATION PRN (10:47)
[2021-06-11] MEDS ORDERED: IPRATROPIUM-ALBUTEROL 3 ML NEB INHALATION PRN (11:12)
[2021-06-11] MEDS: ARIPiprazole 2 MG TAB PO SCH (11:16)
[2021-06-11] MEDS: ESCITALOPRAM 10 MG TAB PO SCH (11:16)
[2021-06-11] MEDS: IPRATROPIUM-ALBUTEROL 3 ML NEB INHALATION SCH ×2 (11:24→20:33)
[2021-06-11 11:31] LABS: Glucose,Whole Blood 274 mg/dL (75-99)
[2021-06-11] MEDS: INSULIN ASPART (NovoLOG) 100 UNIT/ML VIAL SQ SCH ×3 (11:39→22:02)
[2021-06-11] MEDS: methylPREDNISolone SOD SUCCI 125 MG/2 ML VIAL IV SCH ×3 (11:42→23:48)
--- NOTE | 2021-06-11 13:38 | P.HPIM ---
History of Present Illness H&P Date: 06/11/21 HISTORY OF PRESENT ILLNESS This is a 41-year-old female patient of Dr. Matute with past medical history of depression, tobacco use. Patient states that she was diagnosed with Covid 19 on May 22. She states she was having a high heart rate and shortness of breath and her pulse ox was down to 94-95% with ambulation and she saw her PCP, told to come into the hospital for further evaluation. Patient sometimes have a cough and sometimes sputum production with white or clear sputum. She is complaining of difficulty sleeping. Patient presented to [facility] emergency center for evaluation. She was afebrile, initial heart rate 131 and next check was 91. Blood pressure 165/103, pulse ox 90% on room air. CBC was unremarkable. D- dimer 0.67. Sodium 134, CO2 21, BUN 11 creatinine 0.54. Blood sugar 303. Lactic acid initially 3.3, peaked at 5.2 this morning has been as low as 2.2. AST 39, ALT 38. Troponin negative. Coronavirus PCR not detected. ProBNP 71. Chest x-ray reveals secondary sequelae of Covid pneumonia. CTA of the chest revealed no pulmonary embolism. There are ground glass infiltrates correlate for Covid pneumonia. Borderline 1 cm lymph node and a large 1.9 cm right infrahilar lymph node likely reactive. Recommend 6 month follow-up. A few pulmonary nodules on the right measuring up to 6 mm. 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 Mild to moderate emphysema with by apical pleural parenchymal scarring. Patient was placed on the observation unit. She is status post 4.5 L of IV fluids. She was started on IV steroids for COPD exacerbation and started on NovoLog scale, glipizide for new diagnosis of diabetes mellitus type 2. REVIEW OF SYSTEMS Constitutional: No fever, no chills, no night sweats. No weight change. No weakness, fatigue or lethargy. No daytime sleepiness. EENT: No headache. No blurred vision or double vision, no loss of vision. No l oss of Hearing, no ringing in the ears, no dizziness. No nasal drainage or congestion. No epistaxis. No sore throat. Lungs: Reports shortness of breath, Reports cough, Reports sputum production. N o wheezing. Cardiovascular: No chest pain, no lower extremity edema. Reports palpitations. No paroxysmal nocturnal dyspnea. No orthopnea. No lightheadedness or dizziness. No syncopal episodes. Abdominal: No abdominal pain. No nausea, vomiting. No diarrhea. No constipation. No bloody or tarry stools. No loss of appetite. Genitourinary: No dysuria, increased frequency, urgency. No urinary retention. Musculoskeletal: No myalgias. No muscle weakness, no gait dysfunction, no frequent falls. No back pain. No neck pain. Integumentary: No wounds, no lesions. No rash or pruritus. No unusual bruising. No change in hair or nails. Neurologic: No aphasia. No facial droop. No change in mentation. No head injury. No headache. No paralysis. No paresthesia. Psychiatric: No depression. No anxiety. No mood swings. Endocrine: No abnormal blood sugars. No weight change. No excessive sweating or thirst. No cold intolerance. SOCIAL HISTORY Patient was a smoker of one pack per day for 23 years and quit in January 2019. She drinks alcohol occasionally. She denies any marijuana or illicit drug use. FAMILY HISTORY Mother and maternal grandmother has history of diabetes. Patient does not know her father. PHYSICAL EXAMINATION Gen: This is is a 41-year-old female. She is resting in bed and a ppears to be comfortable at rest. No acute distress noted. HEENT: Head is atraumatic, normocephalic. Pupils equal, round. Sclerae is anicteric. NECK: Supple. No JVD. No lymphadenopathy. No thyromegaly. LUNGS: Clear to auscultation. No wheezes or rhonchi. No intercostal retractions. No accessory muscle usage. HEART: Regular rate and rhythm. No murmur. ABDOMEN: Soft. Bowel sounds are present. No masses. No tenderness. EXTREMITIES: No pedal edema. No calf tenderness. NEUROLOGICAL: Patient is awake, alert and oriented x3. Cranial nerves 2 through 12 are grossly intact. ASSESSMENT AND PLAN 1. COPD exacerbation. Patient started on Solu-Medrol 2 mg IV every 6 hours, DuoNeb treatments 3 times daily and as needed, Symbicort twice daily. 2. Hyperglycemia with new diagnosis of diabetes mellitus type 2. Patient started on glipizide 2.5 mg daily, start Levemir 5 units daily to cover for steroids and NovoLog scale before meals and at bedtime. Dexamethasone di scontinued. Obtain A1c. 3. Lactic acidosis secondary to a combination of hyperglycemia with metabolic acidosis and dehydration. Patient is status post IV fluid resuscitation. One more liter ordered of IV fluid bolus. No need to continue lactic acid draws. 4. Tachycardia secondary to lactic acidosis. Improved following IV fluid resuscitation. 5. Hypertension. No treatment at this point, continue to monitor. 5. Recurrent depression. Continue Lexapro 30 mg daily and Abilify 2 mg daily. 6. Diagnosis of Covid in May. 7. Remote history of tobacco use. 8. COVID-19 testing negative. Patient has been hospitalized during a pandemic. Patient will be admitted to the hospital for a minimum of 2 night stay. DISCHARGE PLAN Home on Tuesday. Impression and plan of care have been directed as dictated by the signing physician. Juliann Ornelas nurse practitioner acting as scribe for signing physician. Past Medical History Past Medical History: No Reported History Additional Past Medical History / Comment(s): covid History of Any Multi-Drug Resistant Organisms: None Reported Past Surgical History: Section, Orthopedic Surgery Additional Past Surgical History / Comment(s): bunionectomy Past Anesthesia/Blood Transfusion Reactions: No Reported Reaction Past Psychological History: Anxiety, Depression Smoking Status: Former smoker Past Alcohol Use History: Occasional Past Drug Use History: None Reported - Past Family History Mother Family Medical History: Diabetes Mellitus, Hypertension Father Family Medical History: Unable to Obtain Additional Family Medical History / Comment(s): unknown Medications and Allergies Home Medications Medication Instructions Recorded Confirmed Type ARIPiprazole [Abilify] 2 mg PO DAILY 06/10/21 06/10/21 History Albuterol Sulfate [Ventolin HFA] 2 puff INHALATION RT-Q6H PRN 06/10/21 06/10/21 History Ammonium Lactate Cream [Lac-Hydrin 1 applic TOPICAL DAILY PRN 06/10/21 06/10/21 History 12% Cream] Blisovi 1 tab PO DAILY@199906/10/21 06/10/21 History Escitalopram [Lexapro] 30 mg PO DAILY@119906/10/21 06/10/21 History Budesonide/Formoterol Fumarate 1 puff INHALATION BID #10.2 gm 06/11/21 Rx [Symbicort 160-4.5 Mcg Inhaler] glipiZIDE XL [Glucotrol XL] 2.5 mg PO DAILY #30 tab 06/11/21 Rx predniSONE 0 mg PO DIRECTED #63 tab 06/11/21 Rx Insulin Glargine,Hum.rec.anlog 10 unit SQ DAILY #1 each 06/12/21 Rx [Basaglar Kwikpen U-100] [place], Insulin Disposable [Bd 1 needle SQ DIRECTED #30 each 06/12/21 Rx Ultra-Fine Pen Needle 4mm 32g] metFORMIN HCL [Glucophage] 500 mg PO BID #60 tab 06/12/21 Rx Allergies Allergy/AdvReac Type Severity Reaction Status Date / Time naproxen Allergy Unknown Verified 06/10/21 14:34 Physical Exam Vitals: Vital Signs Temp Pulse Pulse Pulse Resp BP BP 06/11/21 07:15 98 F 78 17 137/87 06/11/21 01:45 98.0 F 87 18 152/99 06/10/21 19:40 98.2 F 104 H 20 146/97 06/10/21 17:45 101 H 06/10/21 17:30 97.8 F 106 H 16 142/95 06/10/21 17:00 98.4 F 92 23 127/94 06/10/21 15:00 79 22 133/91 06/10/21 14:00 75 20 142/89 06/10/21 13:00 91 20 06/10/21 11:58 97 F L 131 H 18 165/103 Pulse Ox 06/11/21 07:15 95 06/11/21 01:45 97 06/10/21 19:40 97 06/10/21 17:45 06/10/21 17:30 97 06/10/21 17:00 97 06/10/21 15:00 99 06/10/21 14:00 96 06/10/21 13:00 96 06/10/21 11:58 98 Intake and Output 06/10/21 06/11/21 06/11/21 22:59 06:59 14:59 Intake Total 118 Balance 118 Intake: Oral 118 Other: # Voids 1 2 Weight 85.275 kg Results CBC & Chem 7: 06/10/21 12:11 06/10/21 12:11 Labs: Abnormal Lab Results - Last 24 Hours (Table) 06/10/21 06/10/21 06/10/21 Range/Units 12:11 12:11 12:11 D-Dimer 0.67 H (<0.60) mg/L FEU Sodium 134 L (137-145) mmol/L Carbon Dioxide 21 L (22-30) mmol/L Glucose 303 H (74-99) mg/dL Plasma Lactic Acid Roel 3.3 H* (0.7-2.0) mmol/L AST 39 H (14-36) U/L ALT 38 H (4-34) U/L 06/10/21 06/10/21 06/10/21 Range/Units 15:42 18:20 21:04 D-Dimer (<0.60) mg/L FEU Sodium (137-145) mmol/L Carbon Dioxide (22-30) mmol/L Glucose (74-99) mg/dL Plasma Lactic Acid Roel 2.2 H* 3.7 H* 4.7 H* (0.7-2.0) mmol/L AST (14-36) U/L ALT (4-34) U/L 06/11/21 06/11/21 06/11/21 Range/Units 00:19 07:14 10:15 D-Dimer (<0.60) mg/L FEU Sodium (137-145) mmol/L Carbon Dioxide (22-30) mmol/L Glucose (74-99) mg/dL Plasma Lactic Acid Roel 4.7 H* 2.2 H* 5.2 H* (0.7-2.0) mmol/L AST (14-36) U/L ALT (4-34) U/L Thrombosis Risk Factor Assmnt - Choose All That Apply Any of the Below Risk Factors Present?: Yes Each Factor Represents 1 point: Age 41-60 years, Obesity (BMI >25), Serious lung disease incl. pneumonia (< 1month), Varicose veins Other Risk Factors: No Other congenital or acquired thrombophilia - If yes, enter type in comment: No Thrombosis Risk Factor Assessment Total Risk Factor Score: 4 Thrombosis Risk Factor Assessment Level: Moderate Risk
[2021-06-11 17:02] LABS: Glucose,Whole Blood 288 mg/dL (75-99)
[2021-06-11] MEDS: SODIUM CHLORIDE 0.9% 1,000 ML IV SCH (18:16)
[2021-06-11] MEDS: SYMBICORT 160-4.5 MCG INHALER INHALATION SCH (20:33)
[2021-06-11 20:40] LABS: Glucose,Whole Blood 316 mg/dL (75-99)
[2021-06-12] MEDS: SODIUM CHLORIDE 0.9% 1,000 ML IV SCH (00:05)
[2021-06-12] MEDS: methylPREDNISolone SOD SUCCI 125 MG/2 ML VIAL IV SCH (05:37)
[2021-06-12] MEDS ORDERED: INSULIN DETEMIR (LEVEMIR) 100 UNIT/ML SYR SQ SCH (07:00)
[2021-06-12 07:34] VITALS: BP 133/91; RESP 20; TEMP 98.3
[2021-06-12 07:39] LABS: Glucose,Whole Blood 292 mg/dL (75-99)
[2021-06-12] MEDS: SYMBICORT 160-4.5 MCG INHALER INHALATION SCH (07:50)
[2021-06-12] MEDS: IPRATROPIUM-ALBUTEROL 3 ML NEB INHALATION SCH ×2 (07:50→11:51)
[2021-06-12] MEDS: INSULIN ASPART (NovoLOG) 100 UNIT/ML VIAL SQ SCH ×2 (08:29→12:33)
[2021-06-12] MEDS: ARIPiprazole 2 MG TAB PO SCH (08:30)
--- NOTE | 2021-06-12 10:20 | P.DS ---
Providers Date of admission: 06/10/21 15:55 Expected date of discharge: 06/12/21 Attending physician: Ken Restrepo MD Primary care physician: Nolan Matute [facility] Course: HISTORY OF PRESENT ILLNESS This is a 41-year-old female patient of Dr. Matute with past medical history of depression, tobacco use. Patient states that she was diagnosed with Covid 19 on May 22. She states she was having a high heart rate and shortness of breath and her pulse ox was down to 94-95% with ambulation and she saw her PCP, told to come into the hospital for further evaluation. Patient sometimes have a cough and sometimes sputum production with white or clear sputum. She is complaining of difficulty sleeping. Patient presented to [facility] emergency center for evaluation. She was afebrile, initial heart rate 131 and next check was 91. Blood pressure 165/103, pulse ox 90% on room air. CBC was unremarkable. D- dimer 0.67. Sodium 134, CO2 21, BUN 11 creatinine 0.54. Blood sugar 303. Lactic acid initially 3.3, peaked at 5.2 this morning has been as low as 2.2. AST 39, ALT 38. Troponin negative. Coronavirus PCR not detected. ProBNP 71. Chest x-ray reveals secondary sequelae of Covid pneumonia. CTA of the chest revealed no pulmonary embolism. There are ground glass infiltrates correlate for Covid pneumonia. Borderline 1 cm lymph node and a large 1.9 cm right infrahilar lymph node likely reactive. Recommend 6 month follow-up. A few pulmonary nodules on the right measuring up to 6 mm. 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 Mild to moderate emphysema with by apical pleural parenchymal scarring. Patient was placed on the observation unit. She is status post 4.5 L of IV fluids. She was started on IV steroids for COPD exacerbation and started on NovoLog scale, glipizide for new diagnosis of diabetes mellitus type 2. 2/4: Patient states her breathing status is improved. She has been afebrile, heart rate 93, blood pressure 133/91, pulse ox 97% on room air. Blood sugars are running 274-329. Hemoglobin A1c came back at 9.4. Patient will be started on insulin, Lantus was covered by her insurance, metformin and glipizide. Patient will also be started on lisinopril for blood pressure and renal protection. Regarding her COPD exacerbation. Patient started on Symbicort prednisone and continue Ventolin inhaler at home. Anticipate the patient will be able to be on oral diabetic medications once controlled. project construction assistant manager is making arrangements for glucometer. Patient will be discharged today in stable condition. DISCHARGE DIAGNOSES 1. COPD exacerbation. 2. Hyperglycemia with new diagnosis of diabetes mellitus type 2. A1C 9.4. 3. Lactic acidosis secondary to a combination of hyperglycemia with metabolic acidosis and dehydration. 4. Tachycardia secondary to lactic acidosis. 5. Hypertension. 5. Recurrent depression. 6. Diagnosis of Covid in May. 7. Remote history of tobacco use. 8. COVID-19 testing negative. Patient has been hospitalized during a pandemic. DISCHARGE PLAN Home Greater than 35 minutes was utilized and coordinating patient's discharge. Impression and plan of care have been directed as dictated by the signing physician. Juliann Ornelas nurse practitioner acting as scribe for signing physician. Patient Condition at Discharge: Good Plan - Discharge Summary Discharge Rx Participant: No New Discharge Prescriptions: New predniSONE 0 mg PO DIRECTED #63 tab Budesonide/Formoterol Fumarate [Symbicort 160-4.5 Mcg Inhaler] 1 puff INHALATION BID #10.2 gm Insulin Glargine,Hum.rec.anlog [Lantus Solostar Pen] 10 unit SQ DAILY #1 pen glipiZIDE XL [Glucotrol XL] 2.5 mg PO DAILY #30 tab [place], Insulin Disposable [Bd Ultra-Fine Pen Needle 4mm 32g] 1 needle SQ DIRECTED #30 each metFORMIN HCL [Glucophage] 500 mg PO BID #60 tab lisinopriL [Zestril] 5 mg PO DAILY #30 tab Continue Escitalopram [Lexapro] 30 mg PO DAILY@1200 ARIPiprazole [Abilify] 2 mg PO DAILY Albuterol Sulfate [Ventolin HFA] 2 puff INHALATION RT-Q6H PRN PRN Reason: Shortness Of Breath Ammonium Lactate Cream [Lac-Hydrin 12% Cream] 1 applic TOPICAL DAILY PRN PRN Reason: Dry Skin Blisovi 1 tab PO DAILY@1999 Discharge Medication List ARIPiprazole [Abilify] 2 mg PO DAILY 06/10/21 [History] Albuterol Sulfate [Ventolin HFA] 2 puff INHALATION RT-Q6H PRN 06/10/21 [History] Ammonium Lactate Cream [Lac-Hydrin 12% Cream] 1 applic TOPICAL DAILY PRN 06/10/21 [History] Blisovi 1 tab PO DAILY@199906/10/21 [History] Escitalopram [Lexapro] 30 mg PO DAILY@1200 06/10/21 [History] Budesonide/Formoterol Fumarate [Symbicort 160-4.5 Mcg Inhaler] 1 puff INHALATION BID #10.2 gm 06/11/21 [Rx] glipiZIDE XL [Glucotrol XL] 2.5 mg PO DAILY #30 tab 06/11/21 [Rx] predniSONE 0 mg PO DIRECTED #63 tab 06/11/21 [Rx] Insulin Glargine,Hum.rec.anlog [Lantus Solostar Pen] 10 unit SQ DAILY #1 pen 06/12/21 [Rx] [place], Insulin Disposable [Bd Ultra-Fine Pen Needle 4mm 32g] 1 needle SQ DI RECTED #30 each 06/12/21 [Rx] lisinopriL [Zestril] 5 mg PO DAILY #30 tab 06/12/21 [Rx] metFORMIN HCL [Glucophage] 500 mg PO BID #60 tab 06/12/21 [Rx] Follow up Appointment(s)/Referral(s): Diabetes Education,Nguyễn HILLMAN [NON-STAFF] - As Needed Nolan Matute MD [Primary Care Provider] - 06/15/21 9:15 am Patient Instructions/Handouts: Coronavirus Disease 2019 (COVID-19), How to Stop Smoking (DC), Type 2 Diabetes in Adults: New Diagnosis (DC) Activity/Diet/Wound Care/Special Instructions: Off work until 06/19. Your insurance required that [employer] must be used for your diabetic testing supplies. They can be reached at [phone] or at [email or web address] Discharge Disposition: HOME SELF-CARE
[2021-06-12 10:50] VITALS: PULSE 77
[2021-06-12 11:54] LABS: Glucose,Whole Blood 329 mg/dL (75-99)
[2021-06-12] MEDS ORDERED: lisinopriL 5 MG TAB PO SCH (12:15)
[2021-06-12] MEDS: ESCITALOPRAM 10 MG TAB PO SCH (12:34)
[2021-06-12] MEDS ORDERED: methylPREDNISolone SOD SUCCI 40 MG/ML 1 ML VIAL IV SCH (16:00)
== END 2021-06-12 12:41 | disposition home or self-care (01) ==
LOC: EC 11:58 → 6NMEDSUR 15:55
PROVIDERS: ADMIT Internal Medicine; ATTEND Internal Medicine
DX: J43.2 Centrilobular emphysema (principal); J12.82 Pneumonia due to coronavirus disease 2019; U09.9 Post COVID-19 condition, unspecified; E11.65 Type 2 diabetes mellitus with hyperglycemia; E86.0 Dehydration; E87.2 Acidosis; R59.9 Enlarged lymph nodes, unspecified; G47.9 Sleep disorder, unspecified; I10 Essential (primary) hypertension; J98.4 Other disorders of lung; I83.90 Asymptomatic varicose veins of unspecified lower extremity; F33.9 Major depressive disorder, recurrent, unspecified; E66.9 Obesity, unspecified; Z68.28 Body mass index [BMI] 28.0-28.9, adult; Z20.822 Contact with and (suspected) exposure to COVID-19; Z79.899 Other long term (current) drug therapy; Z88.6 Allergy status to analgesic agent; Z87.891 Personal history of nicotine dependence; Z83.3 Family history of diabetes mellitus; Z82.49 Family history of ischemic heart disease and other diseases of the circulatory system
CPT/HCPCS: 96376 ×2; 96361 ×4; 96374; 99285; 36415; 94640 ×4; 93005; 85379; 83880; 80053; 83605 ×2; 84484; 85025; 83036; 87635; 71046; 71275; G0378 ×3; J2930 ×2; J8540 ×2; Q9967

== ENCOUNTER → 2021-07-07 | Outpatient (CLI) | payer OTHER | END | disposition home or self-care (01) | LOC: LABWHC1 08:36 | PROVIDERS: ATTEND Family Medicine | DX: E11.65 Type 2 diabetes mellitus with hyperglycemia (principal); E01.0 Iodine-deficiency related diffuse (endemic) goiter; E55.9 Vitamin D deficiency, unspecified | CPT/HCPCS: 36415; 82306; 83036; 84443 ==

== ENCOUNTER → 2021-08-24 | Outpatient (CLI) | payer OTHER ==
[2021-08-24 20:17] LABS: ALT 24 U/L (8-44); AST 23 U/L (13-35); Chol/HDL Ratio 5.25 Ratio; LDL Cholesterol,Calculated 131.1 mg/dL (0.0-131.0)
== END | disposition home or self-care (01) ==
LOC: LABWHC1 12:32
PROVIDERS: ATTEND Internal Medicine Cardiovascular Disease
DX: E78.2 Mixed hyperlipidemia (principal)
CPT/HCPCS: 36415; 80061; 84443; 84450; 84460

== ENCOUNTER → 2021-09-07 | Outpatient (CLI) | payer OTHER ==
[2021-09-07 20:31] LABS: Anion Gap 14.6 mmol/L (10.00-18.00); Blood Urea Nitrogen 11.2 mg/dL (9.0-27.0); Carbon Dioxide 22.2 mmol/L (20.0-27.5); Non-African American GFR(CKD) 105.3 (60.0-200.0); Potassium 4.2 mmol/L (3.5-5.5)
== END | disposition home or self-care (01) ==
LOC: LABWHC1 12:38
PROVIDERS: ATTEND Family Medicine
DX: R60.0 Localized edema (principal)
CPT/HCPCS: 36415; 80051; 82565; 84520

== ENCOUNTER → 2021-10-12 | Outpatient (CLI) | payer OTHER | END | disposition home or self-care (01) | LOC: LABWHC1 10:42 | PROVIDERS: ATTEND Family Medicine | DX: E11.65 Type 2 diabetes mellitus with hyperglycemia (principal) | CPT/HCPCS: 36415; 83036; 83525 ==

== ENCOUNTER → 2022-11-15 | Outpatient (CLI) | payer OTHER ==
[2022-11-15 16:44] LABS: Basophils # (A) 0.08 X 10*3/uL (0.00-0.10); Eosinophils # (A) 0.31 X 10*3/uL (0.04-0.35); HGB 15.2 d/dL (12.0-15.0); Lymphocytes # (A) 1.84 X 10*3/uL (0.90-5.00); Lymphocytes % (A) 23.5 %; MCH 31.8 pg (27.0-32.0); MCHC 32.3 d/dL (32.0-37.0); MCV 98.3 FL (80.0-97.0); Mean Platelet Volume 10.4 FL (9.5-12.2); Monocytes # (A) 0.62 X 10*3/uL (0.20-1.00); Monocytes % (A) 7.9 %; NRBC Per 100 WBC 0 X 10*3/uL (0.00-0.01); Neutrophils # (A) 4.96 X 10*3/uL (1.80-7.70); Neutrophils % (A) 63.3 %; Platelet Count 310 X 10*3/uL (140-440); RBC 4.78 X 10*6/uL (4.10-5.20); RDW 12.5 % (11.5-14.5); WBC 7.83 X 10*3/uL (4.50-10.00)
== END | disposition home or self-care (01) ==
LOC: LABWHC1 08:45
PROVIDERS: ATTEND Family Medicine
DX: Z00.00 Encounter for general adult medical examination without abnormal findings (principal); E11.65 Type 2 diabetes mellitus with hyperglycemia; E55.9 Vitamin D deficiency, unspecified
CPT/HCPCS: 36415; 82306; 83036; 84443; 85025

== ENCOUNTER → 2023-06-03 | Outpatient (CLI) | payer OTHER ==
[2023-06-04 02:13] LABS: ALT 17 U/L (8-44); AST 17 U/L (13-35); Albumin 3.9 g/dL (3.8-4.9); Albumin/Globulin Ratio 1.44 Ratio (1.60-3.17); Alkaline Phosphatase 56 U/L (41-126); Blood Urea Nitrogen 9.8 mg/dL (9.0-27.0); Calcium 9.9 mg/dL (8.7-10.3); Carbon Dioxide 25.7 mmol/L (21.6-31.8); Chloride 103 mmol/L (96-109); Chol/HDL Ratio 3.57 Ratio; Globulin 2.7 g/dL (1.6-3.3); Glucose 102 mg/dL (70-110); LDL Cholesterol,Calculated 88.3 mg/dL (0.0-131.0); Sodium 142 mmol/L (135-145); Total Bilirubin 0.4 mg/dL (0.3-1.2); Total Protein 6.6 g/dL (6.2-8.2)
== END | disposition home or self-care (01) ==
LOC: LABWHC1 15:17
PROVIDERS: ATTEND Family Medicine
DX: E11.65 Type 2 diabetes mellitus with hyperglycemia (principal)
CPT/HCPCS: 36415; 80053; 80061; 83036

== ENCOUNTER 2024-07-27 16:30 | Emergency (ER) | payer OTHER ==
[2024-07-27 16:34] VITALS: RESP 18; TEMP 97.9
--- NOTE | 2024-07-27 16:52 | ED ---
General Adult HPI - General Chief complaint: Extremity Problem,Nontraumatic Stated complaint: Weakness in legs Time Seen by Provider: 07/27/24 16:39 Source: patient Mode of arrival: ambulatory Limitations: no limitations - History of Present Illness Initial comments: Dictation was produced using [employer] 3[employer] dictation software. please excuse any grammatical, word or spelling errors. Chief Complaint: 44-year-old female presents to the emergency department for bilateral leg weakness History of Present Illness: Patient is a 44-year-old female she has past medical history of diabetes. She states for the last week and a half she has had left lower leg weakness. She states that she is having difficulty ambulating. She states that the weakness went into her leg. She saw a PA at primary care physician's office twice. She was told she had foot drop and she should come to the emergency department for possible brain MRI. Patient denies any abnormal s ensation. She does not have any history of neurologic issues. No vision loss. Patient just recovered from a cold recently. The ROS documented in this emergency department record has been reviewed and confirmed by me. Those systems with pertinent positive or negative responses have been documented in the HPI. All other systems are other negative and/or noncontributory. - Related Data Home Medications Medication Instructions Recorded Confirmed ARIPiprazole [Abilify] 2 mg PO DAILY 06/10/21 06/10/21 Albuterol Sulfate [Ventolin HFA] 2 puff INHALATION RT-Q6H PRN 06/10/21 06/10/21 Ammonium Lactate Cream [Lac-Hydrin 1 applic TOPICAL DAILY PRN 06/10/21 06/10/21 12% Cream] Blisovi 1 tab PO DAILY@199906/10/21 06/10/21 Escitalopram [Lexapro] 30 mg PO DAILY@119906/10/21 06/10/21 Previous Rx's Medication Instructions Recorded Budesonide/Formoterol Fumarate 1 puff INHALATION BID #10.2 gm 06/11/21 [Symbicort 160-4.5 Mcg Inhaler] glipiZIDE XL [Glucotrol XL] 2.5 mg PO DAILY #30 tab 06/11/21 predniSONE 0 mg PO DIRECTED #63 tab 06/11/21 Insulin Glargine,Hum.rec.anlog 10 unit SQ DAILY #1 pen 06/12/21 [Lantus Solostar Pen] Pen Needle, Diabetic [Bd 1 needle SQ DIRECTED #30 each 06/12/21 Ultra-Fine Pen Needle 4mm 32g] lisinopriL [Zestril] 5 mg PO DAILY #30 tab 06/12/21 metFORMIN HCL [Glucophage] 500 mg PO BID #60 tab 06/12/21 Allergies Allergy/AdvReac Type Severity Reaction Status Date / Time naproxen Allergy Unknown Verified 06/10/21 14:34 Review of Systems ROS Statement: Those systems with pertinent positive or pertinent negative responses have been documented in the HPI. ROS Other: All systems not noted in ROS Statement are negative. Past Medical History Past Medical History: Chest Pain / Angina, Diabetes Mellitus, Hypertension Additional Past Medical History / Comment(s): covid History of Any Multi-Drug Resistant Organisms: None Reported Past Surgical History: Section, Orthopedic Surgery Additional Past Surgical History / Comment(s): bunionectomy Past Anesthesia/Blood Transfusion Reactions: No Reported Reaction Past Psychological History: Anxiety, Depression Smoking Status: Former smoker Past Alcohol Use History: None Reported Past Drug Use History: None Reported - Past Family History Mother Family Medical History: Diabetes Mellitus, Hypertension Father Family Medical History: Unable to Obtain Additional Family Medical History / Comment(s): unknown General Exam - General Exam Comments Initial Comments: PHYSICAL EXAM: General Impression: Alert and oriented x3, not in acute distress HEENT: Normocephalic atraumatic, extra-ocular movements intact, pupils equal and reactive to light bilaterally, mucous membranes moist. Cardiovascular: Heart regular rate and rhythm Chest: Able to complete full sentences, no retractions, no tachypnea Abdomen: abdomen soft, non-tender, non-distended, no organomegaly Musculoskeletal: Pulses present and equal in all extremities, no peripheral mio ma Motor: no focal deficits noted Neurological: CN II-XII grossly intact, no focal motor or sensory deficits noted, intact tiptoe walking, patient having some mild ataxia with heel walking. She does appear to have function of foot dorsiflexion, otherwise has a relatively benign gait Skin: Intact with no visualized rashes Psych: Normal affect and mood Limitations: no limitations Course Vital Signs 07/27/24 16:32 Temperature 97.9 F Pulse Rate 85 Respiratory 18 Rate Blood Pressure 173/94 O2 Sat by Pulse 9 L Oximetry - Reevaluation(s) Reevaluation #1: 07/27/24 17:45 Case was discussed with KULDEEP Daly from [facility] who sent the patient to the ER. Swathi was concerned that patient was having gait difficulties. She was not sure what was causing her symptoms. There was concern perhaps that patient was suffering from acute neurologic issue. Medical Decision Making - Medical Decision Making Was pt. sent in by a medical professional or institution (KULDEEP Rojas, STAFF DEVELOPMENT COORDINATOR, urgent care, hospital, or long-term...) When possible be specific @ -No Did you speak to anyone other than the patient for history (EMS, parent, family, police, friend...)? What history was obtained from this source @ -No Did you review nursing and triage notes (agree or disagree)? Why? @ -I reviewed and agree with nursing and triage notes Were old charts reviewed (outside hosp., previous admission, EMS record, old EKG, old radiological studies, urgent care reports/EKG's, long-term records)? Report findings @ -No old charts were reviewed Differential Diagnosis (chest pain, altered mental status, abdominal pain women, abdominal pain men, vaginal bleeding, musculoskeletal, weakness, fever, dyspnea, syncope, headache, dizziness, GI bleed, back pain, seizure, CVA, palpatations, mental health)? @ - Differential CVA: Ischemic stroke, hemorrhagic stroke, brain tumor, atypical migraine, Wernicke's encephalopathy, seizure, multiple sclerosis, meningitis, encephalitis, hypogl ycemia, Guillain-Hernandez, electrolytes disturbance, myasthenia gravis.... This is not meant to be an all-inclusive list EKG interpreted by me (3pts min.). @ -None done X-rays interpreted by me (1pt min.). @ -None done CT interpreted by me (1pt min.). @ -None done U/S interpreted by me (1pt. min.). @ -None done What testing was considered but not performed or refused? (CT, X-rays, U/S, labs)? Why? @ -None What meds were considered but not given or refused? Why? @ -None Was smoking cessation discussed for >3mins.? @ -No Were there social determinants of health that impacted care today? How? (Homelessness, low income, unemployed, alcoholism, drug addiction, transportation, low edu. Level, literacy, decrease access to med. care, assisted, rehab)? @ -No Was there de-escalation of care discussed even if they declined (Discuss DNR or withdrawal of care, Hospice)? DNR status @ -No What co-morbidities impacted this encounter? (DM, HTN, Smoking, COPD, CAD, Cancer, CVA, ARF, Chemo, Hep., AIDS, mental health diagnosis, sleep apnea, morbid obesity)? @ -None Was patient admitted / discharged? Hospital course, mention meds given and route, prescriptions, significant lab abnormalities, going to OR and other pertinent info. @ -44-year-old female presents with chief complaint of bilateral lower extremity weakness. She has a rather benign appearing gait. She does not have heel drop. She denies any neurologic sensation abnormalities. Vital signs are stable. Neurologic exam is otherwise unremarkable. She does have some difficulty with heel walking however she is able to dorsiflex the foot bilaterally. Labs are unremarkable. Discussed with patient that her symptoms are likely neurologic in nature however not severe enough to warrant hospital admission. She is told to follow-up with her primary care doctor for further care and neurology referral. Patient agreeable plan will be discharged. Return precautions discussed. Did you discuss the management of the patient with other professionals (professionals i.e. , PA, STAFF DEVELOPMENT COORDINATOR, lab, RT, psych nurse, oncology social worker, ice grinder, teacher, returning officer, therapeutic case manager)? Give summary @ -No Was critical care preformed (if so, how long)? @ -No Undiagnosed new problem with uncertain prognosis? @ -No Drug Therapy requiring intensive monitoring for toxicity (Heparin, Nitro, Insulin, Cardizem)? @ -No Were any procedures done? @ -No Diagnosis/symptom? Acute, or Chronic, or Acute on Chronic? Uncomplicated (without systemic symptoms) or Complicated (systemic symptoms)? @ -Lower extremity weakness Side effects of treatment? @ -No Exacerbation, Progression, or Severe Exacerbation? @ -No Poses a threat to life or bodily function? How? (Chest pain, [place], [place], pneumonia, PE, COPD, DKA, ARF, appy, cholecystitis, CVA, Diverticulitis, Homicidal, Suicidal, threat to staff... and all critical care pts) @ -yes - Lab Data Result diagrams: 07/27/24 17:19 07/27/24 17:19 Lab Results 07/27/24 07/27/24 Range/Units 17:19 17:19 WBC 10.0 (3.8-10.6) k/uL RBC 4.49 (3.80-5.40) m/uL Hgb 14.0 (11.4-16.0) gm/dL Hct 43.3 (34.0-46.0) % MCV 96.4 (80.0-100.0) fL MCH 31.1 (25.0-35.0) pg MCHC 32.3 (31.0-37.0) g/dL RDW 12.6 (11.5-15.5) % Plt Count 352 (150-450) k/uL MPV 7.5 Neutrophils % 65 % Lymphocytes % 23 % Monocytes % 6 % Eosinophils % 3 % Basophils % 1 % Neutrophils # 6.5 (1.3-7.7) k/uL Lymphocytes # 2.3 (1.0-4.8) k/uL Monocytes # 0.6 (0-1.0) k/uL Eosinophils # 0.3 (0-0.7) k/uL Basophils # 0.1 (0-0.2) k/uL Sodium 135 L (137-145) mmol/L Potassium 3.7 (3.5-5.1) mmol/L Chloride 102 (98-107) mmol/L Carbon Dioxide 26 (22-30) mmol/L Anion Gap 7 mmol/L BUN 10 (7-17) mg/dL Creatinine 0.62 (0.52-1.04) mg/dL Est GFR (CKD-EPI)AfAm >90 (>60 ml/min/1.73 sqM) Est GFR (CKD-EPI)NonAf >90 (>60 ml/min/1.73 sqM) Glucose 96 (74-99) mg/dL Calcium 9.7 (8.4-10.2) mg/dL Disposition Clinical Impression: Leg weakness Disposition: HOME SELF-CARE Condition: Fair Instructions (If sedation given, give patient instructions): Weakness (ED) Additional Instructions: follow up with neurology Is patient prescribed a controlled substance at d/c from ED?: No Referrals: Prasanna Bullock MD [Primary Care Provider] - 1-2 days Time of Disposition: 17:53
[2024-07-27 17:24] LABS: Basophils # (A) 0.1 k/uL (0-0.2); Basophils % (A) 1 %; Eosinophils # (A) 0.3 k/uL (0-0.7); Eosinophils % (A) 3 %; HCT 43.3 % (34.0-46.0); Lymphocytes # (A) 2.3 k/uL (1.0-4.8); Lymphocytes % (A) 23 %; MCH 31.1 pg (25.0-35.0); MCHC 32.3 g/dL (31.0-37.0); MCV 96.4 fL (80.0-100.0); Mean Platelet Volume 7.5; Monocytes # (A) 0.6 k/uL (0-1.0); Monocytes % (A) 6 %; Neutrophils # (A) 6.5 k/uL (1.3-7.7); Neutrophils % (A) 65 %; Platelet Count 352 k/uL (150-450); RBC 4.49 m/uL (3.80-5.40); RDW 12.6 % (11.5-15.5)
[2024-07-27 17:39] LABS: African American GFR (CKD) >90 (>60 ml/min/1.73 sqM); Anion Gap 7 mmol/L; Blood Urea Nitrogen 10 mg/dL (7-17); Calcium 9.7 mg/dL (8.4-10.2); Carbon Dioxide 26 mmol/L (22-30); Chloride 102 mmol/L (98-107); Glucose 96 mg/dL (74-99); Non-African American GFR(CKD) >90 (>60 ml/min/1.73 sqM); Potassium 3.7 mmol/L (3.5-5.1); Sodium 135 mmol/L (137-145)
[2024-07-27 18:50] VITALS: BP 153/95; PULSE 77
== END 2024-07-27 18:50 | disposition home or self-care (01) ==
LOC: EC 16:30
DX: R53.1 Weakness (principal); Z88.6 Allergy status to analgesic agent; Z86.16 Personal history of COVID-19; Z87.891 Personal history of nicotine dependence
CPT/HCPCS: 36415; 80048; 85025; 99284